=== PATIENT | female | born 1965 | race Caucasian/White ===

== ENCOUNTER → 2019-02-09 07:48 | Outpatient (CLI) | payer BC, SELFPAY ==
--- NOTE | 2019-02-09 11:00 | NEURO ---
NCS and/or EMG Patient Report Ordering Doctor: Luis Muller DATE OF SERVICE: 02/09/19 This is a right lower extremity EMG and nerve conduction study performed on this 53-year-old female with a history of burning in her feet which at times is severe but is constant. She is healthy otherwise. Right lower extremity sensory and motor nerve conduction studies performed demonstrating normal sural sensory responses and normal common peroneal distal latencies with reduced amplitudes and mild reduction of conduction velocities. The tibial motor responses are normal. The common peroneal F-wave latencies are prolonged, and the tibial H reflex responses are reduced bilaterally. Needle electromyography is performed of the right lower extremity. Muscles evaluate included the sensor digitorum brevis, abductor hallucis, medial gastrocnemius, anterior tibialis, and vastus lateralis muscles. The vastus medialis muscle was not evaluated due to adiposity. All muscles demonstrated normal insertional activity with absence of pathologic spontaneous activity. Imodium potential recruitment pattern and amplitude are normal in all muscles tested. 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 Other evaluations could include serum and urine protein electrophoresis, complete metabolic panel.
== END ==
DX: R20.2 Paresthesia of skin (principal)
CPT/HCPCS: 95886; 95909

== ENCOUNTER → 2020-06-01 | Outpatient (CLI) | payer BC, SELFPAY ==
[2020-06-01 13:41] LABS: LDH 235 U/L (84-246)
[2020-06-02 08:45] LABS: Cancer Antigen 125 76.2 U/mL (0.0-38.1); Carbohydrate AG 19-9 24 U/mL (0-35); Carcinoembryonic Antigen 19.2 ng/mL (0.0-4.7)
[2020-06-02 17:35] LABS: HCG BETA-SUBUNIT QUANT. 2 mIU/mL (.)
[2020-06-06 03:20] LABS: HPV APTIMA, High Risk Positive (Negative); HPV Reflexed? YES, CHARGE PATIENT
== END | disposition home or self-care (01) ==
PROVIDERS: Visit Provider Student in an Organized Health Care Education/Training Program
DX: Z12.4 Encounter for screening for malignant neoplasm of cervix (principal); R19.00 Intra-abdominal and pelvic swelling, mass and lump, unspecified site
CPT/HCPCS: 82378; 83615; 84702; 86301; 86304; 87624; 88175; G0145

== ENCOUNTER → 2020-06-08 07:51 | Outpatient (CLI) | payer BC, SELFPAY ==
--- NOTE | 2020-06-08 07:55 | CT_ITS ---
STUDY: CT ABDOMEN AND PELVIS WITH CONTRAST REASON FOR EXAM: Female, 54 years old. PELVIC MASS and leaky bladder. Prior lumbar surgery. RADIATION DOSAGE (If Supplied By Facility): CTDIvol = ( 13.81 ) mGy, DLP = ( 1608.99 ) mGycm TECHNIQUE: Transaxial images were obtained from the dome of the diaphragm to the symphysis pubis with oral contrast. Oral and amp; IV Readi-CAT and amp; 100mL Isovue-300 was administered. Sagittal and coronal images were reconstructed. Individualized dose optimization techniques were used for this CT. COMPARISON: None. FINDINGS: There is a 3.1 mm x 5.7 mm noncalcified nodule in the peripheral lateral aspect of the right middle lobe as seen on axial image #5 and coronal image #34. Coronary artery calcification. Normal liver. Normal gallbladder and extrahepatic biliary system. Normal spleen. 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 Normal pancreas. Normal bilateral adrenal glands. Normal right kidney. Normal left kidney. Normal visualized stomach. Normal small intestine. There are multiple colonic diverticula consistent with diverticulosis. The appendix is visualized and appears normal. There is diffuse atherosclerotic calcification of the abdominal aorta and its major visceral branches, without a demonstrated aneurysm. Normal inferior vena cava. There is borderline retroperitoneal lymphadenopathy with enlarged nodes no greater than 10mm in the short axis diameter. Normal urinary bladder. There is a 4.5 cm x 4.2 cm soft tissue mass in the region of the cervix of the uterus. This causes a dilatation of the uterus with fluid within the endometrium. This measures 7.1 cm x 6 cm. Small benign-appearing bilateral inguinal lymph nodes. There is a small umbilical hernia containing fat. There are diffuse degenerative changes of the visualized lumbar spine. There is evidence of prior laminectomy and fusion at the L4-L5 level. Mild anterior listhesis of L4 on L5. CT/Abdomen/Pelvis WITH Contrast IMPRESSION: Findings in keeping with a mass in the cervical portion of the uterus with fluid distention of the endometrium as described. Cervical carcinoma should be ruled out. The soft tissue mass causes indentation on the anterior wall of the rectum. Electronically Signed: Bam Dempsey, at 9:26 EDT , Service support ,
--- NOTE | 2020-06-08 08:02 | CT_ITS ---
STUDY: CT CHEST WITH CONTRAST REASON FOR EXAM: Female, 54 years old. PELVIC MASS and leaky bladder. Prior lumbar surgery. RADIATION DOSAGE (If Supplied By Facility): CTDIvol = ( 13.81 ) mGy, DLP = ( 1608.99 ) mGycm TECHNIQUE: Transaxial imaging was performed following intravenous administration of Oral and amp; IV Readi-CAT and amp; 100mL Isovue-300. Multiplanar coronal and sagittal images were reformatted. Individualized dose optimization techniques were used for this CT. COMPARISON: None. FINDINGS: Mild degree of emphysematous changes in the upper lobes with bullous formation slightly worse in the left upper lobe. There is a 3.7 mm x 5.1 mm noncalcified pleural-based nodule in the anterior lateral aspect of the right middle lobe as seen on axial image #92 and coronal image #86. A 12 month follow-up is recommended. There is no demonstrated pleural abnormality. There are calcifications of the coronary arteries. Normal mediastinum. Normal hilar regions. Normal enhanced pulmonary arteries. Normal aorta arch and descending thoracic aorta. There is demineralization of the thoracic spine. There is no demonstrated abnormality of the visualized upper abdomen. CT/Chest WITH Contrast IMPRESSION: 3.7 mm x 5.1 mm noncalcified pleural-based nodule in the anterior lateral aspect of the right middle lobe as described. A 12 month follow-up CT scan is recommended to assess stability. Electronically Signed: Bam Dempsey, at 9:29 EDT , Service support ,
== END ==
PROVIDERS: Referring Provider Student in an Organized Health Care Education/Training Program; Visit Provider Student in an Organized Health Care Education/Training Program
DX: R19.00 Intra-abdominal and pelvic swelling, mass and lump, unspecified site (principal)
CPT/HCPCS: 71260; 74177; Q9967

== ENCOUNTER → 2020-06-26 14:23 | Outpatient (CLI) | payer BC, SELFPAY ==
--- NOTE | 2020-06-26 14:00 | PET_ITS ---
EXAMINATION: FDG PET/CT INDICATIONS: A 54-year-old female with reported history of cervical carcinoma presenting for initial staging examination. COMPARISON EXAMINATION: CT of the abdomen and pelvis report dated 06/08/2020, CT of the chest report dated 06/08/2020 INDEX LESION SIZE SUV INTERPRETATION Lower pelvis-uterine cervix 40.3 x 53.6-mm (frame 56) 34.5 Fulfills quantitative criteria for viable neoplasm Circumferential fluid-filled distended endometrium 3.7 (max) May represent neoplastic infiltration TECHNIQUE: Following the intravenous administration of 13.1 mCi of F-18 deoxyglucose via the left antecubital fossa, multiplanar image acquisitions of the neck, chest, abdomen and pelvis to level of mid thigh, obtained at one hour post radiopharmaceutical administration contemporaneously interpreted with the current CT of the neck, chest, abdomen and pelvis to level of mid thigh, dated 06/26/[address] of the abdomen and pelvis dated 06/08/2020, CT of the chest report dated 06/08/2020 reveal: SERUM GLUCOSE LEVEL: 141 mg/dl. HEIGHT: 67 inches. WEIGHT: 210 lbs. FINDINGS: 1. There is an increase in glucose metabolism noted in the lower midline pelvic mesentery associated with the lower portion of the uterus-uterine cervix. The calculated maximal standard uptake value is 34.5. The maximal axial diameter of the corresponding metabolic, morphologic abnormality on review of CT of the pelvis dated 06/26/2020 is 40.3-mm (transverse) x 53.6-mm (AP). 2. A circumferential increase glucose metabolism is manifest in the upper-lower pelvic mesentery associated with the visualized uterus with central photopenia registering a calculated maximal standard uptake value of 3.7. Uptake correlates with the periphery of the fluid distended endometrium described on CT of the abdomen and pelvis dated 06/08/2020. 3. Normal physiologic distribution of the radiopharmaceutical is apparent in the hepatic (3.1) and splenic parenchyma, both renal units, bladder and visualized intestinal tract. The visualized portion of the cerebral cortex demonstrate symmetric and preserved glucose metabolism. Diffuse radiopharmaceutical concentration is noted in all four quadrants of the abdomen and pelvis. There is homogenous enhanced glucose concentration evidenced in the visualized appendicular and axial skeletal structures. Prominent radiopharmaceutical concentration, nodular in presentation is noted in the right upper pelvic mesentery most consistent with ureteric distribution of radiopharmaceutical. Pertinent CT findings are as follows: CHEST: There is atherosclerotic calcification defined in the thoracic aorta without evidence of dilatation-aneurysm formation. Coronary arterial calcification is observed. Bilateral axillary soft tissue densities with fatty hilus are ametabolic. There are no parenchymal densities-nodules defined in the right and left hemithorax with discernible quantitatively significant increased FDG uptake. ABDOMEN AND PELVIS: The distended fluid-filled endometrium is noted as previously described. Right-left inguinal soft tissue densities are non-glucose avid. There is atherosclerotic calcification defined in the abdominal aorta without evidence of dilatation-aneurysm formation. SKELETAL: Degenerative changes are noted in the cervical, thoracic and lumbar spine. Orthopedic hardware placement is defined in the lower lumbar spine commensurate with spinal fusion operative intervention. PET/PET/CT Tumor Base -Thigh Init IMPRESSION: 1. ABNORMAL EXAMINATION INDICATIVE OF MALIGNANT VIABLE NEOPLASM. 2. Increased FDG uptake noted in the lower pelvis contiguous to the lower portion of the uterus-uterine cervix fulfills quantitative criteria for viable neoplasm and is most consistent with the reported primary cervical carcinoma. 3. Circumferential increased tracer uptake noted in the upper-lower pelvis appears associated with the visualized peripheral aspect of the dilated prominent endometrium. Histopathologic analysis may be indicated. 4. Homogenous increased radiopharmaceutical concentration manifest throughout the visualized appendicular-axial skeletal structures, in the absence of chemotherapeutic intervention, is consistent with the pattern associated with hyperplasia of the hematopoietic marrow. (Martha, AJR 180:669, 2003). 5. No other quantitatively significant hypermetabolic abnormalities are noted. There is no definitive scintigraphic evidence of distant metastatic disease. Electronic Signature Dc Garcia D.O. Accurate Quantification of SUVs for this report are calculated using the exclusive [employer]. Electronically Signed: Dc Garcia DO at 11:13 EDT Tel , Service support ,
== END ==
DX: C53.0 Malignant neoplasm of endocervix (principal)
CPT/HCPCS: 78815; A9552

== ENCOUNTER → 2020-09-24 13:10 | Outpatient (CLI) | payer BC, SELFPAY ==
--- NOTE | 2020-09-24 13:13 | CT_ITS ---
STUDY: CT CHEST WITH CONTRAST REASON FOR EXAM: Female, 54 years old. FOLLOW UP CERVICAL CANCER RADIATION DOSAGE (If Supplied By Facility): CTDIvol = ( 18.25 ) mGy, DLP = ( 1394.60 ) mGycm TECHNIQUE: Transaxial imaging was performed following intravenous administration of [id number] 100ML. Multiplanar coronal and sagittal images were reformatted. Individualized dose optimization techniques were used for this CT. COMPARISON: Comparison is made with prior study dated 06/08/2020. FINDINGS: 2 mm calcified granuloma in the lateral aspect of the right lower lobe as seen on axial image #60. Stable 3.7 mm x 5.1 mm noncalcified pleural-based nodule in the anterior lateral aspect of the right middle lobe as seen on axial image #77. Stable mild degree of emphysematous changes in the upper lobes with small bulla formation more prominent in the left upper lobe. There is no demonstrated pleural abnormality. There are calcifications of the coronary arteries. Normal mediastinum. Normal hilar regions. Normal enhanced pulmonary arteries. There is atherosclerotic calcification of the aortic arch . There is demineralization of the thoracic spine. There is no demonstrated abnormality of the visualized upper abdomen. CT/Chest WITH Contrast IMPRESSION: Stable examination. Electronically Signed: Bam Dempsey, at 8:06 EST , Service support ,
--- NOTE | 2020-09-24 13:21 | CT_ITS ---
STUDY: CT ABDOMEN AND PELVIS WITH CONTRAST REASON FOR EXAM: Female, 54 years old. CERVICAL CANCER FOLLOW UP RADIATION DOSAGE (If Supplied By Facility): CTDIvol = ( 18.25 ) mGy, DLP = ( 1394.60 ) mGycm TECHNIQUE: Transaxial images were obtained from the dome of the diaphragm to the symphysis pubis with oral contrast. Oral and amp; IV Readi-CAT and amp; 100mL Isovue-300 was administered. Sagittal and coronal images were reconstructed. Individualized dose optimization techniques were used for this CT. COMPARISON: Comparison is made with prior study dated 06/08/2020. FINDINGS: Stable 3.2 mm x 5.7 mm noncalcified nodule in the peripheral lateral aspect right middle lobe as seen on axial image #1. Coronary artery calcification Normal liver. Normal gallbladder and extrahepatic biliary system. Normal spleen. 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 Normal pancreas. Normal bilateral adrenal glands. Normal right kidney. Minimal left hydronephrosis. Normal visualized stomach. Normal small intestine. There are scattered colonic diverticula consistent with diverticulosis. The appendix is visualized and appears normal. There is diffuse atherosclerotic calcification of the abdominal aorta and its major visceral branches, without a demonstrated aneurysm. Normal inferior vena cava. There is borderline retroperitoneal lymphadenopathy with enlarged nodes no greater than 10mm in the short axis diameter. Normal urinary bladder. There is absence of the uterus consistent with a prior hysterectomy. There is a small umbilical hernia containing fat. Prior laminectomy and fusion at the L4-L5 level. This space narrowing and disc degeneration at the L5-S1 level. CT/Abdomen/Pelvis WITH Contrast IMPRESSION: Status post hysterectomy. The remainder of the examination is unchanged. Electronically Signed: Bam Dempsey, at 8:09 EST , Service support ,
[2020-09-25 07:29] LABS: CREATININE FINGERSTICK 0.51 mg/dL (0.55-1.02)
== END ==
DX: C53.9 Malignant neoplasm of cervix uteri, unspecified (principal)
CPT/HCPCS: 71260; 74177; Q9967; A4216

== ENCOUNTER → 2020-11-27 14:51 | Outpatient (CLI) | payer BC, SELFPAY ==
--- NOTE | 2020-11-27 14:30 | PET_ITS ---
EXAMINATION: FDG PET/CT INDICATIONS: A 54-year-old female with reported history of cervical carcinoma presenting for restaging examination. COMPARISON EXAMINATION: CT of the chest report dated 09/24/20, CT of the abdomen and pelvis report dated 09/24/20 TECHNIQUE: Following the intravenous administration of 12.26 mCi of F-18 deoxyglucose via the right hand, multiplanar image acquisitions of the neck, chest, abdomen and pelvis to level of mid thigh, obtained at one hour post radiopharmaceutical administration contemporaneously interpreted with the current CT of the neck, chest, abdomen and pelvis to level of mid thigh, dated 11/27/[address] of the chest report dated 09/24/20, CT of the abdomen and pelvis report dated 09/24/20 reveal: SERUM GLUCOSE LEVEL: 96 mg/dl. HEIGHT: 67 inches. WEIGHT: 200 lbs. FINDINGS: 1. There is no quantitative scintigraphic evidence of abnormal increased glucose metabolism on meticulous inspection of whole body acquisitions to include all three axis reconstructions. 2. Normal physiologic distribution of the radiopharmaceutical is apparent in the hepatic and splenic parenchyma, both renal units, bladder and visualized intestinal tract. The visualized portion of the cerebral cortex, as well as cerebellar hemispheres demonstrate symmetric and preserved glucose metabolism. Pertinent CT findings are as follows: CHEST: There is atherosclerotic calcification defined in the thoracic aorta without evidence of dilatation-aneurysm formation. Coronary arterial calcification is observed. Bilateral axillary soft tissue densities with fatty hilus are ametabolic. Scattered mediastinal soft tissue reveals no evidence of increased tracer uptake. There are no parenchymal densities-nodules defined in the right and left hemithorax with discernible increased FDG concentration. ABDOMEN AND PELVIS: A fat containing paraumbilical hernia is noted. There is atherosclerotic calcification defined in the abdominal aorta without evidence of dilatation-aneurysm formation. Pelvic arterial calcification is observed. Bilateral inguinal soft tissue densities with fatty hilus are ametabolic. Colonic diverticulosis is encountered without evidence of diverticulitis. SKELETAL: Degenerative changes are noted in the cervical, thoracic and lumbar spine without evidence of increased radiopharmaceutical concentration. Orthopedic hardware placement is noted in the lower lumbar spine commensurate with spinal fusion operative intervention. PET/PET/CT Tumor Base -Thigh Subs IMPRESSION: 1. NEGATIVE EXAMINATION. There is no definitive quantitative scintigraphic evidence of residual-recurrent/viable metastatic neoplasm. Electronic Signature Dc Garcia D.O. Accurate Quantification of SUVs for this report are calculated using the exclusive [employer] Technology.??Exclusive [place] Patent [employer]? Technology ([place]. Patent No. [id number]). Electronically Signed: Dc Garcia DO at 22:57 EST Tel , Service support ,
== END ==
DX: C53.8 Malignant neoplasm of overlapping sites of cervix uteri (principal)
CPT/HCPCS: 78815; A9552